=== PATIENT | male | born 1995 | race Caucasian/White ===

== ENCOUNTER 2018-08-14 23:08 | Emergency (ER) | payer BC, OTHER ==
[2018-08-14 23:32] VITALS: BP 146/84; PULSE 135; TEMP 102.9; BMI 37.5
--- NOTE | 2018-08-14 23:45 | PDOC ---
History of Present Illness - General Chief Complaint: Cold Symptoms Stated Complaint: FEVER Time Seen by Provider: 08/14/18 23:45 History Source: Patient Exam Limitations: No Limitations - History of Present Illness Initial Comments: Pt is a 22 yo M, with no significant PMH, who is presenting with complaints of sore throat, fever, and cough productive of clear sputum since yesterday evening. Pt states his symptoms started with a sore throat last night. When he awoke this AM, he developed subjective chills and Tmax of 103. He took tylenol only (~6-7 hours apart) for fever, and the fever would reduce after the tylenol administration. He developed a cough today productive of clear sputum. Pt denies any headache, vision changes, syncope, chest pain, palpitations, SOB, nausea/vomiting, abdominal pain, urinary symptoms, diarrhea/constipation, or leg swelling. Social: Pt denies any cigarette, alcohol, or drug use. Pt denies any recent travel or sick contacts. Surgical: no relevant history. Family: no relevant history. 08/15/18 01:50 Past History - Travel Traveled outside of the country in the last 30 days: No Close contact w/someone who was outside of country & ill: No - Past Medical History Allergies/Adverse Reactions: Allergies Allergy/AdvReac Type Severity Reaction Status Date / Time No Known Allergies Allergy Verified 08/14/18 23:32 Home Medications: Ambulatory Orders Ondansetron [Zofran Odt -] 4 mg SL BID PRN #14 od.tablet 08/15/18 Oseltamivir Phosphate [Tamiflu] 75 mg PO BID 5 Days #10 capsule 08/15/18 Asthma: No HTN: No Hypercholesterolemia: No - Surgical History Abdominal Surgery: No - Suicide/Smoking/Psychosocial Hx Smoking History: Never smoked Have you smoked in the past 12 months: No Information on smoking cessation initiated: No Hx Alcohol Use: No Drug/Substance Use Hx: No Review of Systems - Review of Systems Able to Perform ROS?: Yes Is the patient limited [place] proficient: No Constitutional: Yes: Chills, Fever, Malaise, Weight Stable. No: Diaphoresis, Loss of Appetite, Weakness HEENTM: Yes: Nose Congestion, Throat Pain. No: Blurred Vision, Double Vision, Throat Swelling, Difficulty Swallowing Respiratory: Yes: See HPI, Cough. No: Orthopnea, Shortness of Breath, Stridor, Wheezing, Hemoptysis Cardiac (ROS): No: Chest Pain, Edema, Irregular Heart Rate, Lightheadedness, Palpitations, Syncope, Chest Tightness ABD/GI: No: Constipated, Diarrhea, Nausea, Poor Appetite, Poor Fluid Intake, Vomiting, Abdominal cramping : No: Burning, Dysuria, Frequency, Pain, Urgency, Testicular Pain Musculoskeletal: No: Back Pain Integumentary: No: Rash Neurological: No: Headache, Weakness, Unsteady Gait, Ataxia, Dizziness Psychiatric: No: Sleep Pattern Change, Change in Appetite Endocrine: No: Increased Urine, Change in Weight Hematologic/Lymphatic: No: Anemia, Blood Clots, Easy Bleeding, Easy Bruising All Other Systems: Reviewed and Negative *Physical Exam - Vital Signs Last Vital Signs Temp Pulse Resp BP Pulse Ox 102.9 F H 135 H 22 H 146/84 97 08/14/18 23:29 08/14/18 23:29 08/14/18 23:29 08/14/18 23:29 08/14/18 23:29 - Physical Exam Comments: Vitals stable, pt afebrile. PE showed pt alert and oriented. wool shearer generally intact, muscular strength and sensation intact. Oropharynx with mild phayrngeal erythema and tonsillar swelling, no exudates. Pt tolerating secretions. Dry nasal congestion present. No sinus tenderness. No LAD. Clear heart and lung sounds, no wheezes or crackles, no JVD, b/l pedal edema, or heart murmur. No use of accessory muscles, no respiratory distress. No abdominal or CVA tenderness to palpation, no rebound, no guarding. No skin rashes or erythema. 08/15/18 01:53 Moderate Sedation - Procedure Monitoring Vital Signs: Procedure Monitoring Vital Signs Temperature 102.9 F H 08/14/18 23:29 Pulse Rate 135 H 08/14/18 23:29 Respiratory Rate 22 H 08/14/18 23:29 Blood Pressure 146/84 08/14/18 23:29 O2 Sat by Pulse Oximetry (%) 97 08/14/18 23:29 Medical Decision Making - Medical Decision Making Pt was seen at bedside, also will be seen by attending Dr. Armendariz. Pt presenting with complaints of sore throat, fever, and cough productive of clear sputum since yesterday evening. Pt states his symptoms started with a sore throat last night. When he awoke this AM, he developed subjective chills and Tmax of 103. He took tylenol only (~6-7 hours apart) for fever, and the fever would reduce after the tylenol administration. He developed a cough today productive of clear sputum. Pt denies any headache, vision changes, syncope, chest pain, palpitations, SOB, nausea/vomiting, abdominal pain, urinary symptoms , diarrhea/constipation, or leg swelling. Vitals stable, pt afebrile. PE showed pt alert and oriented. wool shearer generally intact, muscular strength and sensation intact. Oropharynx with mild phayrngeal erythema and tonsillar swelling, no exudates. Pt tolerating secretions. Dry nasal congestion present. No sinus tenderness. No LAD. Clear heart and lung sounds, no wheezes or crackles, no JVD, b/l pedal edema, or heart murmur. No use of accessory muscles, no respiratory distress. No abdominal or CVA tenderness to palpation, no rebound, no guarding. No skin rashes or erythema. Considering viral URI/influenza vs strep pharyngitis vs viral pharyngitis. Unlikely pneumonia, as symptoms preceded by sore throat, no focal infiltrates on exam, pt moving good air, no SOB. Ordered work-up including rapid influenza and strep throat test. Provided 600 mg PO motrin and PO water for improvement of fever and tachycardia. Will continue to reassess pt and monitor for symptomatic improvement. 08/15/18 00:23 Influenza A positive. Strep test negative. Sending tamiflu (within 48 hours of symptoms) and zofran SL tablets to pt pharmacy. Advised to continue with anti-pyretics and fluid hydration at home. Pt tolerated PO intake in the department. Pt can be discharged to home with follow-up. Pt advised to follow-up with PCP in 1-2 days. Strict return precautions provided with pt understanding. 08/15/18 00:46 *DC/Admit/Observation/Transfer Diagnosis at time of Disposition: Influenza A - Discharge Dispostion Disposition: HOME Condition at time of disposition: Improved Decision to Admit order: No - Prescriptions Prescriptions: Ondansetron [Zofran Odt -] 4 mg SL BID PRN #14 od.tablet PRN Reason: Nausea And/Or Vomiting Oseltamivir Phosphate [Tamiflu] 75 mg PO BID 5 Days #10 capsule - Referrals Referrals: Lisha Murdock MD [Primary Care Provider] - - Patient Instructions Printed Discharge Instructions: DI for Influenza -- Adult Additional Instructions: You were seen in the ER today for fever, sore throat, and cough. Your labs showed that you have the flu. Please follow-up with your primary care doctor within 1-2 days to discuss your visit and make sure your symptoms have improved. Please return to the ER if you have any worsening pain, fevers or chills that does not improve with tylenol or ibuprofen, blood in your vomit or stool, loss of consciousness, inability to tolerate food or fluids, or any other concerns. I have sent Tamiflu and a nausea medication (Zofran - 4 mg every 12 hours as needed, please take as prescribed). You can continue to take ibuprofen and tylenol, every 4 hours, switching between the two medications. Please continue with fluid hydration at home, and bland foods (soup, gatorade) as tolerated. - Post Discharge Activity
[2018-08-14] MEDS ORDERED: ACETAMINOPHEN 325 MG TABLET (FP) PO ONE (23:49)
[2018-08-15] MEDS ORDERED: IBUPROFEN 600 MG TABLET (FP) PO ONE ×2 (00:03→00:09)
--- NOTE | 2018-08-15 00:16 | PDOC ---
Attending Attestation - HPI HPI: 08/15/18 00:19 The patient is a 22 year old male, with no significant past medical history, who presents to the emergency department with fever, nasal congestion, and sore throat, since yesterday. The patient reports taking his temperature, with the highest fever being 103 F. The patient reports he took tylenol which alleviated the fever, but the fever returned prompting him to come into the ED today. The patient also notes a cough productive of clear sputum that began today. The patient denies sick contact. The patient denies change in PO intake. He denies any recent chills, headache or dizziness. He denies any recent vomit, diarrhea or constipation. He denies any recent chest pain or shortness of breath. He denies any recent dysuria, frequency, urgency or hematuria. Allergies: NKA Past surgical history: None reported. Social History: Nonsmoker. Denies EtOH use and recreational drug use. Primary Care Physician: Dr. Lisha Murdock <Sofia Maguire - Last Filed: 08/15/18 00:36> - Resident Resident Name: Iqra Santillan - ED Attending Attestation I have performed the following: I have examined & evaluated the patient, The case was reviewed & discussed with the resident, I agree w/resident's findings & plan, Exceptions are as noted - Physicial Exam PE: 08/15/18 00:26 22 yo male p/w fever,tachycardia,cough and nasal congestion head ncat nares + rhinorhhea throat + erythema, uvula midline, no edema neck supple lungs cta b/l cvs tachycardia abd no rebound,no guarding ext no edema skin warm and dry no cva tenderness neuro axox3, ambulatory 08/15/18 00:29 - Medical Decision Making 08/15/18 00:30 22 yo male with cough,chills,fever,nasal congestion and sore throat no resp distress lungs cta b/l 08/15/18 00:44 Found to be INFLUENZA A POSITIVE <Jessica Armendariz - Last Filed: 08/15/18 00:45> Attestations - Attestations 08/15/18 00:36 Documentation prepared by Sofia Maguire, acting as rn medical inpatient services for Jessica Armendariz MD. <Sofia Maguire - Last Filed: 08/15/18 00:36>
== END 2018-08-15 02:14 | disposition home or self-care (01) ==
LOC: JER 23:08
DX: J09.X2 Influenza due to identified novel influenza A virus with other respiratory manifestations (principal)
CPT/HCPCS: 87070; 87804; 87880; 99281-25

== ENCOUNTER 2024-08-17 14:35 | Emergency (ER) | payer OTHER ==
[2024-08-17 14:56] VITALS: BP 176/80; PULSE 89; RESP 18; TEMP 98.8; BMI 69.5
[2024-08-17 18:04] LABS: THROAT:GRP A STREP NOT DETECTED (NOTDETECTED)
== END 2024-08-17 16:55 | disposition home or self-care (01) ==
LOC: FER 14:35
DX: R05.1 Acute cough (principal); Z20.822 Contact with and (suspected) exposure to COVID-19
CPT/HCPCS: 0241U-QW; 71046-TC-FY; 87651; 99284-25